=== PATIENT | female | born 1995 | race Caucasian/White ===

== ENCOUNTER 2016-12-20 12:17 | Emergency (ER) | payer BC ==
[~2016-12-20] VITALS: Ht 165.1 cm; Wt 70.3 kg
[2016-12-20] MEDS ORDERED: plaquenil PO (12:46)
[2016-12-20] MEDS ORDERED: NORT25CA2 PO (12:48)
[2016-12-20] MEDS ORDERED: VALA500T PO (12:48)
[2016-12-20] MEDS ORDERED: OMEP40CA2 PO (12:48)
[2016-12-20] MEDS ORDERED: MICR1TAB10 PO (12:48)
[2016-12-20] MEDS ORDERED: PRED20TA PO (14:58)
[2016-12-20] MEDS ORDERED: CYCL10TA PO (14:59)
[2016-12-20 15:09] VITALS: BP 110/72
== END 2016-12-20 15:10 | disposition home or self-care (01) ==
LOC: M ED 14:57
DX: M54.12 Radiculopathy, cervical region (principal); M06.9 Rheumatoid arthritis, unspecified; M32.9 Systemic lupus erythematosus, unspecified; Z79.899 Other long term (current) drug therapy

== ENCOUNTER → 2017-01-01 | Outpatient (CLI) | payer BC ==
[~2017-01-01] MED LIST: CYCL10TA PO; MICR1TAB10 PO; NORT25CA2 PO; OMEP40CA2 PO; PRED20TA PO; VALA500T PO; plaquenil PO
[2017-01-03 13:48] LABS: HIV SCREEN CENTAUR NEGATIVE (NEGATIVE)
== END ==
LOC: M WUC 11:25
PROVIDERS: ATTEND Nurse Practitioner Women's Health
DX: Z11.3 Encounter for screening for infections with a predominantly sexual mode of transmission (principal)

== ENCOUNTER 2017-02-14 23:42 | Emergency (ER) | payer BC ==
[~2017-02-14] VITALS: Ht 165.1 cm; Wt 68.0 kg
[2017-02-14 23:43] VITALS: BP 131/80
== END 2017-02-15 00:58 | disposition left against medical advice (07) ==
LOC: M ED 02-15 00:04
DX: M25.559 Pain in unspecified hip (principal); Z53.29 Procedure and treatment not carried out because of patient's decision for other reasons

== ENCOUNTER → 2017-03-08 | Outpatient (CLI) | payer BC ==
[~2017-03-08] VITALS: Ht 165.1 cm; Wt 65.8 kg
[~2017-03-08] MED LIST changes: +CYMB1CAP4 PO; +LIDOCAINE 2% INJ 100 MG/5 ML SDV (FOR ANES.) As Ordered ONE; +NS 1,000 ML IV ONE; +PILO5TAB3 PO; +PROPOFOL 200 MG/20 ML VIAL As Ordered ONE; +ZOFR20TA PO
--- NOTE | 2017-03-08 15:22 | ROOR ---
Patient Name: Elsie Zaman Procedure Date: 03/08/2017 3:08 PM Date of : 1995 Age: 21 Room: [facility] Gender: Female Note Status: Finalized Procedure: Upper GI endoscopy Indications: Nausea Providers: Ga NUNES MD Referring MD: Jenise Schroeder NP Requesting Provider: Medicines: Monitored Anesthesia Care Complications: No immediate complications. Procedure: Pre-Anesthesia Assessment: - The heart rate, respiratory rate, oxygen saturations, blood pressure, adequacy of pulmonary ventilation, and response to care were monitored throughout the procedure. The Endoscope was introduced through the mouth, and advanced to the second part of duodenum. The upper GI endoscopy was accomplished without difficulty. The patient tolerated the procedure well. Findings: The esophagus was normal. The stomach was normal. The examined duodenum was normal. Biopsies for histology were taken with a cold forceps for evaluation of celiac disease. Impression: - Normal esophagus. - Normal stomach. - Normal examined duodenum. Biopsied. Recommendation: - Continue present medications. - use the zofran twice a day as a straight dose rather than "as needed". try this for at least 1 week. - Telephone endoscopist for pathology results in 2 weeks. Ga Nunes MD Ga NUNES MD 03/08/2017 3:21:57 PM This report has been signed electronically. Number of Addenda: 0 Note Initiated On: 03/08/2017 3:08 PM Estimated Blood Loss: Estimated blood loss: none.
--- NOTE | 2017-03-08 15:34 | ROOR ---
Patient Name: Elsie Zaman Procedure Date: 03/08/2017 3:09 PM Date of : 1995 Age: 21 Room: [facility] Gender: Female Note Status: Finalized Procedure: Colonoscopy Indications: Generalized abdominal pain, Change in bowel habits, Constipation Providers: Ga NUNES MD Referring MD: Jenise Schroeder NP Requesting Provider: Medicines: Monitored Anesthesia Care Complications: No immediate complications. Procedure: Pre-Anesthesia Assessment: - The heart rate, respiratory rate, oxygen saturations, blood pressure, adequacy of pulmonary ventilation, and response to care were monitored throughout the procedure. The Colonoscope was introduced through the anus and advanced to 4 cm into the ileum. The colonoscopy was performed without difficulty. The patient tolerated the procedure well. The quality of the bowel preparation was good. Findings: The perianal and digital rectal examinations were normal. The colon (entire examined portion) appeared normal. The terminal ileum appeared normal. Small Internal Hemorrhoids. Impression: - The entire colon is normal. - The examined portion of the ileum was normal. - Small Internal Hemorrhoids. - No specimens collected. Recommendation: - Miralax 1 capful (17 grams) in 8 ounces of water daily for constipation. Ga Nunes MD Ga NUNES MD 03/08/2017 3:34:25 PM This report has been signed electronically. Number of Addenda: 0 Note Initiated On: 03/08/2017 3:09 PM Estimated Blood Loss: Estimated blood loss: none.
[2017-03-08 15:55] VITALS: BP 118/71
== END | disposition home or self-care (01) ==
LOC: M OPP 13:31
PROVIDERS: ATTEND Internal Medicine Gastroenterology
DX: K64.8 Other hemorrhoids (principal); R11.0 Nausea; K21.9 Gastro-esophageal reflux disease without esophagitis; M19.90 Unspecified osteoarthritis, unspecified site; M32.9 Systemic lupus erythematosus, unspecified; M79.7 Fibromyalgia; A60.00 Herpesviral infection of urogenital system, unspecified; Z79.899 Other long term (current) drug therapy; Z79.3 Long term (current) use of hormonal contraceptives

== ENCOUNTER → 2017-03-27 | Outpatient (CLI) | payer BC, OTHER ==
[~2017-03-27] MED LIST changes: -LIDOCAINE 2% INJ 100 MG/5 ML SDV (FOR ANES.) As Ordered ONE; -NS 1,000 ML IV ONE; -PROPOFOL 200 MG/20 ML VIAL As Ordered ONE
--- NOTE | 2017-03-27 08:29 | REP ---
Clinical: Right upper quadrant abdominal pain with nausea and vomiting. Technique: Haley scale ultrasound using curved array transducer. Findings: The liver and pancreas are normal in contour, size, and echogenicity without focal hepatic or pancreatic lesions identified. The gallbladder is normal without gallstones, wall thickening or pericholecystic fluid. No biliary ductal dilatation is appreciated, and the common bile duct measures 3.9 mm diameter. The right kidney is normal in reniform shape without hydronephrosis and measures 11.2 x 4.7 x 3.6 cm. No ascites. Visualized portions of the abdominal aorta normal. Impression: Normal right upper quadrant and gallbladder abdominal ultrasound. Signed by Binu Lyman MD 03/27/2017 08:21 A
--- NOTE | 2017-03-27 11:31 | REP ---
Hepatobiliary scan and gallbladder ejection fraction: History: Nausea with vomiting. Right upper quadrant pain. Technique: 6.4 mCi of technetium-99m mebrofenin was injected and sequential anterior images are acquired. 65 minutes after the mebrofenin injection, the patient consumed 8 ounces Ensure and an additional 60 minutes of imaging was acquired. Regions of interest are plotted around the gallbladder. Findings: The initial hepatocellular parenchymal uptake phase is normal and homogeneous. Intra- and extra-hepatic bile ducts and duodenum are labeled by the 10 -minute image. The gallbladder is first labeled on the 10 -minute image. There is normal washout from the liver parenchyma into the gallbladder and small intestine on subsequent images. The gallbladder ejection fraction is 91 %. Values greater than 35 % are considered normal with this technique. Impression: Normal hepatobiliary scan and normal gallbladder ejection fraction. Signed by Devon Lazo MD 03/27/2017 11:23 A
== END ==
LOC: M RAD 07:36
PROVIDERS: ATTEND Internal Medicine Gastroenterology
DX: R11.2 Nausea with vomiting, unspecified (principal); R10.11 Right upper quadrant pain

== ENCOUNTER 2017-06-26 10:31 | Outpatient (RCR) | payer BC, OTHER ==
[~2017-06-26 10:31] MED LIST changes: -VALA500T PO; +VALA500T2 PO
== END 2017-06-30 ==
LOC: M OT 10:31
PROVIDERS: ATTEND Internal Medicine Rheumatology
DX: Z51.89 Encounter for other specified aftercare (principal); M79.641 Pain in right hand; M79.642 Pain in left hand

== ENCOUNTER → 2017-07-17 | Outpatient (CLI) | payer BC, OTHER ==
--- NOTE | 2017-07-17 10:11 | REP ---
NUCLEAR GASTRIC EMPTYING SCAN: Following the oral administration of 1.05 millicuries technetium 99m sulfur colloid in two scrambled eggs in 2 ounces of water, multiple images of the upper abdomen are performed in the anterior and posterior projections for 90 minutes. At the end of 90 minutes, 37% of the ingested activity has emptied from the stomach. This yields a T-1/2 of 130 minutes, which is above normal value of 90 minutes. IMPRESSION: Mildly delayed gastric emptying. Signed by Paul Haley MD 07/17/2017 07:57 P
== END ==
LOC: M RAD 07:45
PROVIDERS: ATTEND Internal Medicine Gastroenterology
DX: K31.84 Gastroparesis (principal)

== ENCOUNTER → 2017-10-25 | Outpatient (REF) | payer BC, OTHER ==
[2017-10-25 20:30] LABS: APPEARANCE, URINE CLEAR (CLEAR); BACTERIA, URINE AUTO 1+ (NEGATIVE); BILIRUBIN, URINE AUTO NEGATIVE (NEGATIVE); BLOOD, URINE BLOOD NEGATIVE (NEGATIVE); COLOR, URINE YELLOW (YELLOW); GLUCOSE, URINE (UA) AUTO NEGATIVE (NEGATIVE); KETONE, URINE AUTO NEGATIVE (NEGATIVE); LEUKOCYTE ESTERASE, URINE AUTO TRACE (NEGATIVE); NITRITE, URINE AUTO NEGATIVE (NEGATIVE); PROTEIN, URINE AUTO NEGATIVE (NEGATIVE); RBC, URINE AUTO 1 /HPF (0-3); SPECIFIC GRAVITY URINE AUTO 1.005 (1.002-1.035); SQUAMOUS EPITHELIAL CELL UR AU 2 /HPF (0-6); UROBILINOGEN, URINE AUTO 0.2 mg/dL (0.0-2.0); WBC, URINE AUTO 2 /HPF (0-3)
== END ==
LOC: M LAB REF 17:56
DX: A09 Infectious gastroenteritis and colitis, unspecified (principal); Z98.890 Other specified postprocedural states; R39.15 Urgency of urination; R63.4 Abnormal weight loss
CPT/HCPCS: 81001

== ENCOUNTER → 2017-12-21 | Outpatient (CLI) | payer BC, OTHER ==
[2017-12-21 17:23] LABS: ANION GAP 7 MEQ/L (8-16); BLOOD UREA NITROGEN 11 MG/DL (7-18); CALCIUM LEVEL 8.8 MG/DL (8.5-10.1); CARBON DIOXIDE LEVEL 26 MEQ/L (21-32); CHLORIDE LEVEL 107 MEQ/L (98-107); CREATININE FOR GFR 0.67 MG/DL (0.55-1.30); GLOMERULAR FILTRATION RATE > 60.0 (>60); GLUCOSE, FASTING 67 MG/DL (70-100); POTASSIUM SERUM 4.6 MEQ/L (3.5-5.1); SODIUM LEVEL 140 MEQ/L (136-145)
[2017-12-21 17:34] LABS: CONTROL LINE HCG INT CTR LINE PRESENT; HCG, SERUM QUALITATIVE NEGATIVE (NEGATIVE)
[2017-12-21 17:40] LABS: APPEARANCE, URINE CLEAR (CLEAR); BACTERIA, URINE AUTO NEGATIVE (NEGATIVE); BILIRUBIN, URINE AUTO NEGATIVE (NEGATIVE); BLOOD, URINE BLOOD NEGATIVE (NEGATIVE); COLOR, URINE STRAW (YELLOW); GLUCOSE, URINE (UA) AUTO NEGATIVE (NEGATIVE); KETONE, URINE AUTO NEGATIVE (NEGATIVE); LEUKOCYTE ESTERASE, URINE AUTO NEGATIVE (NEGATIVE); NITRITE, URINE AUTO NEGATIVE (NEGATIVE); PROTEIN, URINE AUTO NEGATIVE (NEGATIVE); RBC, URINE AUTO 0 /HPF (0-3); SPECIFIC GRAVITY URINE AUTO 1.004 (1.002-1.035); SQUAMOUS EPITHELIAL CELL UR AU 0 /HPF (0-6); UROBILINOGEN, URINE AUTO 0.2 mg/dL (0.0-2.0); WBC, URINE AUTO 0 /HPF (0-3)
== END ==
LOC: M SMT 14:11
DX: R31.29 Other microscopic hematuria (principal)
CPT/HCPCS: 84703

== ENCOUNTER → 2018-01-15 | Outpatient (CLI) | payer BC, OTHER ==
[~2018-01-15] MED LIST changes: -CYCL10TA PO; -CYMB1CAP4 PO; +ISOVUE-370 76% 100ML VIAL (Q9967) As Ordered; -MICR1TAB10 PO; -NORT25CA2 PO; -OMEP40CA2 PO; -PILO5TAB3 PO; -PRED20TA PO; -VALA500T2 PO; -ZOFR20TA PO; -plaquenil PO
== END ==
LOC: M RAD 13:01
DX: R31.29 Other microscopic hematuria (principal)
CPT/HCPCS: Q9967

== ENCOUNTER → 2018-01-18 | Outpatient (CLI) | payer BC ==
[~2018-01-18] MED LIST changes: +E-Z-GAS II EFFERVESCENT PACKET (SODIUM BICARB./CITRIC ACID/SIMETHICONE) As Ordered; +E-Z-HD 98% w/w 340GM SUSP BTL As Ordered; +E-Z-PAQUE 96% w/w SUSP 176GM BTL As Ordered; -ISOVUE-370 76% 100ML VIAL (Q9967) As Ordered
== END ==
LOC: M RAD 08:07
DX: R11.2 Nausea with vomiting, unspecified (principal)